=== PATIENT | female | born 1960 | race African-American/Black ===

== ENCOUNTER 2022-01-03 19:03 | Emergency (ER) | payer OTHER ==
[~2022-01-03] VITALS: Ht 172.7 cm; Wt 79.0 kg
[2022-01-03] MEDS ORDERED: SODIUM CHLORIDE 0.9% 1,000 ML IV ONE (19:45)
[2022-01-03 20:55] LABS: BASOPHILS % 0.8 % (0.0-2.0); EOSINOPHILS % 6.6 % (0.0-5.0); HEMATOCRIT. 38.8 % (36.0-48.0); HEMOGLOBIN. 13.3 g/dL (12.0-16.0); LYMPHOCYTES % 53.7 % (20.0-50.0); MEAN CORPUSCULAR HEMOGLOBIN 27.6 pg (28.0-32.0); MEAN CORPUSCULAR VOLUME 80.6 fL (81.0-99.0); MEAN PLATELET VOLUME 7.3 fl (7.4-10.4); MONOCYTES % 5.4 % (2.0-8.0); NEUTROPHILS % 33.5 % (40.0-76.0); PLATELET 287 x1000/uL (130-400); RED BLOOD CELL COUNT 4.81 mill/uL (4.2-5.4); RED CELL DISTRIBUTION WIDTH 16.1 % (11.6-14.6)
[2022-01-03 21:17] LABS: CHLORIDE 113 mEq/L (98-107)
[2022-01-03 21:53] LABS: ETHANOL BLOOD 345 mg/dL
[2022-01-03 23:26] LABS: CLARITY URINE CLEAR (CLEAR); COLOR URINE YELLOW (YELLOW); KETONES URINE NEGATIVE (NEGATIVE); LEUKOCYTE ESTERASE URINE NEGATIVE (NEGATIVE); NITRITE URINE NEGATIVE (NEGATIVE); OCCULT BLOOD URINE NEGATIVE (NEGATIVE); PROTEIN URINE NEGATIVE (NEGATIVE); SPECIFIC GRAVITY URINE 1.007 (1.005-1.030); UROBILINOGEN URINE 0.2 E.U./dL (0.2-1.0)
[2022-01-03 23:53] LABS: *COCAINE SCREEN URINE NEGATIVE (NEGATIVE)
[2022-01-03 23:54] LABS: *BARBITURATES SCREEN URINE NEGATIVE (NEGATIVE); CANNABINOID URINE SCREEN NEGATIVE (NEGATIVE); METHADONE URINE SCREEN NEGATIVE (NEGATIVE); OPIATES URINE SCREEN PRESUMTIVE POSITIVE (NEGATIVE); PHENCYCLIDINE URINE SCREEN NEGATIVE (NEGATIVE)
[2022-01-03 23:55] LABS: *AMPHETAMINES SCREEN URINE NEGATIVE (NEGATIVE); *BENZODIAZEPINES SCREEN URINE NEGATIVE (NEGATIVE)
[2022-01-04] MEDS ORDERED: AMOXICILLIN/POTASSIUM CLAVULANATE 875/125MG TAB PO SCH (00:30)
[2022-01-04] MEDS ORDERED: AMOX-424 MT (00:33)
[2022-01-04] MEDS ORDERED: HYDR-4001 MT (00:33)
[2022-01-04] MEDS ORDERED: GUAI600T26 MT (00:33)
[2022-01-04] MEDS ORDERED: ONDA4TAB5 MT (00:38)
[2022-01-04 08:19] VITALS: BP 136/112
== END 2022-01-04 08:22 | disposition home or self-care (01) ==
LOC: ER 19:03
DX: F10.129 Alcohol abuse with intoxication, unspecified (principal); G92.9 Unspecified toxic encephalopathy; S02.32XA Fracture of orbital floor, left side, initial encounter for closed fracture; S06.9X0A Unspecified intracranial injury without loss of consciousness, initial encounter; I49.9 Cardiac arrhythmia, unspecified; X58.XXXA Exposure to other specified factors, initial encounter; Y93.89 Activity, other specified; Y92.89 Other specified places as the place of occurrence of the external cause; Y99.8 Other external cause status; Y90.8 Blood alcohol level of 240 mg/100 ml or more
CPT/HCPCS: 36415; 70450; 70486; 72125; 80053; 80305; 80307; 80320; 80329; 81003; 85025; 93005; 96360; 99285; J7030; G0480